=== PATIENT | female | born 1935 | race Caucasian/White ===

== ENCOUNTER 2019-03-29 21:58 | Inpatient (IN) | payer MEDICARE ==
[~2019-03-29] VITALS: Ht 160 cm; Wt 46.5 kg
--- NOTE | 2019-03-29 22:20 | NUR ---
PT BROUGHT IN BY [facility]. PT PLACED IN HOSPITAL GOWN. CARDIAC AND VITALS MONITORS PLACED ON PT. PT DENIES CHEST PAIN AT THIS TIME. EKG TO BE DONE.
[2019-03-29] MEDS ORDERED: SODIUM CHLORIDE FLUSH 10ML SYR IVF ONE (22:30)
[2019-03-29] MEDS ORDERED: MORPHINE SULFATE 4 MG/ML, 1ML IVPush PRN (22:30)
[2019-03-29 22:34] LABS: BASOPHILS % (AUTO) 0 % (0-1); EOSINOPHILS # (AUTO) 0.02 x10^3/uL (0-0.4); EOSINOPHILS % (AUTO) 0 % (1-7); LYMPHOCYTES # (AUTO) 0.74 x10^3/uL (1-3.4); LYMPHOCYTES % (AUTO) 9 % (22-44); MD NO; MEAN CORPUSCULAR HEMOGLOBIN 31.5 pg (27.0-34.8); MEAN CORPUSCULAR HGB CONC 34.4 g/dL (32.4-35.8); MEAN CORPUSCULAR VOLUME 91.5 fL (80-100); MEAN PLATELET VOLUME 6.9 fL (7.4-10.4); MONOCYTES # (AUTO) 0.23 x10^3/uL (0.2-0.8); MONOCYTES % (AUTO) 3 % (2-9); NEUTROPHILS # (AUTO) 7.21 x10^3/uL (1.8-6.8); NEUTROPHILS % (AUTO) 88 % (42-75); PLATELET COUNT 260 x10^3/uL (130-400); RED BLOOD COUNT 3.94 x10^6/uL (3.82-5.3); RED CELL DISTRIBUTION WIDTH 13.6 % (9.6-15.2)
[2019-03-29 22:47] LABS: ALANINE AMINOTRANSFERASE 21 U/L (12-78); ANION GAP 6 mmol/L (5-15); CALCIUM 7.9 mg/dL (8.5-10.1); CHLORIDE 113 mmol/L (98-107); CREATININE 0.79 mg/dL (0.55-1.02)
[2019-03-29 22:51] LABS: ALKALINE PHOSPHATASE 57 U/L (45-117); BILIRUBIN,TOTAL 0.3 mg/dL (0.2-1.0); TOTAL PROTEIN 5.6 g/dL (6.4-8.2)
[2019-03-29] MEDS ORDERED: ATOR40TA78 PO (22:57)
[2019-03-29] MEDS ORDERED: ASPI-496 PO (22:57)
[2019-03-29] MEDS ORDERED: MULT-658 PO (22:57)
[2019-03-29] MEDS ORDERED: ENAL10TA PO (22:57)
[2019-03-29] MEDS ORDERED: DOCU-131 PO (22:57)
[2019-03-29] MEDS ORDERED: FELO10TA PO (22:57)
[2019-03-29] MEDS ORDERED: AMLODIPINE PO (22:57)
[2019-03-29] MEDS ORDERED: LEVO25TA4 PO (22:57)
[2019-03-29] MEDS ORDERED: ASCO500T12 PO (22:57)
[2019-03-29] MEDS ORDERED: HEPARIN 25,000 UNITS/500ML PMX 500 ML IV PRN ×2 (23:00→23:45)
[2019-03-29] MEDS ORDERED: HEPARIN 5,000 UNITS/ML, 1ML IV ONE (23:00)
[2019-03-29] MEDS ORDERED: HEPARIN 5,000 UNITS/ML, 1ML IV PRN ×2 (23:00→23:45)
[2019-03-29 23:09] LABS: INTERNATIONAL NORMALIZED RATIO 1.07 (0.93-1.1); PROTHROMBIN TIME 11.2 Seconds (9.6-11.5)
[2019-03-29] MEDS: ENALAPRIL 10 MG TABLET PO SCH (23:30)
--- NOTE | 2019-03-29 23:31 | NUR ---
+report to Cally guerrero for toom 529
[2019-03-29] MEDS ORDERED: HEPARIN 25,000 UNITS/500ML PMX 500 ML ONE (23:36)
--- NOTE | 2019-03-29 23:40 | NUR ---
CAROL BEASLEY - [phone] KANDIS JONES - [phone]
[2019-03-29] MEDS ORDERED: SODIUM CHLORIDE 0.9% 1,000 ML IV SCH (23:48)
[2019-03-30] MEDS ORDERED: hydrALAzine 20 MG/ML, 1ML IVPush PRN
[2019-03-30] MEDS ORDERED: BISACODYL 10 MG SUPP PR PRN
[2019-03-30] MEDS ORDERED: ONDANSETRON 2MG/ML, 2ML IVPush PRN
[2019-03-30] MEDS ORDERED: POLYETHYLENE GLYCOL 17 GM PACKET PO PRN
[2019-03-30] MEDS ORDERED: PROMETHAZINE 25 MG/ML, 1ML IM PRN
[2019-03-30] MEDS ORDERED: DOCUSATE 100 MG CAPSULE PO PRN
[2019-03-30] MEDS ORDERED: ACETAMINOPHEN 325 MG TABLET PO PRN
[2019-03-30] MEDS ORDERED: OXYcodone IR 5MG TABLET PO PRN
[2019-03-30] MEDS ORDERED: morphine SULFATE 10 MG/ML, 1ML IVPush PRN
[2019-03-30] MEDS ORDERED: NITROGLYCERIN 0.4 MG BOTTLE (25 TABS) SL PRN
[2019-03-30] MEDS ORDERED: ONDANSETRON ODT 4 MG PO PRN
[2019-03-30 00:20] LABS: HEMOGLOBIN A1C 5.6 % (4.2-6.3)
[2019-03-30 00:22] LABS: FREE T4 (FREE THYROXINE) 1.03 ng/dL (0.76-1.46); THYROID STIMULATING HORMONE 3.45 mIU/L (0.358-3.740)
[2019-03-30] MEDS: AMLODIPINE 10 MG TAB PO SCH ×2 (00:39→20:18)
[2019-03-30] MEDS: DOCUSATE 100 MG CAPSULE PO SCH ×2 (00:39→20:18)
[2019-03-30] MEDS: ATORVASTATIN 40 MG TABLET PO SCH ×2 (00:39→20:17)
[2019-03-30] MEDS ORDERED: HEPARIN 25,000 UNITS/500ML PMX 500 ML IV PRN (01:00)
[2019-03-30] MEDS ORDERED: HEPARIN 5,000 UNITS/ML, 1ML IV PRN (01:00)
[2019-03-30 01:22] VITALS: BP 125/69
[2019-03-30 01:48] VITALS: BP 111/61
[2019-03-30 02:26] LABS: MICROSCOPIC AUTO
[2019-03-30 02:29] LABS: CULTURE INDICATED? YES
[2019-03-30 04:42] LABS: BASOPHILS # (AUTO) 0.03 x10^3/uL (0-0.1); BASOPHILS % (AUTO) 1 % (0-1); EOSINOPHILS # (AUTO) 0.03 x10^3/uL (0-0.4); EOSINOPHILS % (AUTO) 0 % (1-7); LYMPHOCYTES # (AUTO) 1.03 x10^3/uL (1-3.4); LYMPHOCYTES % (AUTO) 15 % (22-44); MD NO; MEAN CORPUSCULAR HEMOGLOBIN 31.4 pg (27.0-34.8); MEAN CORPUSCULAR HGB CONC 34.1 g/dL (32.4-35.8); MEAN CORPUSCULAR VOLUME 92.1 fL (80-100); MEAN PLATELET VOLUME 6.8 fL (7.4-10.4); MONOCYTES # (AUTO) 0.37 x10^3/uL (0.2-0.8); MONOCYTES % (AUTO) 5 % (2-9); NEUTROPHILS # (AUTO) 5.63 x10^3/uL (1.8-6.8); NEUTROPHILS % (AUTO) 79 % (42-75); PLATELET COUNT 242 x10^3/uL (130-400); RED BLOOD COUNT 3.64 x10^6/uL (3.82-5.3); RED CELL DISTRIBUTION WIDTH 13.8 % (9.6-15.2)
[2019-03-30 05:14] LABS: CHLORIDE 112 mmol/L (98-107)
[2019-03-30 05:22] LABS: ALANINE AMINOTRANSFERASE 32 U/L (12-78); ALBUMIN 2.8 g/dL (3.4-5.0); ALKALINE PHOSPHATASE 53 U/L (45-117); ANION GAP 8 mmol/L (5-15); BILIRUBIN,TOTAL 0.4 mg/dL (0.2-1.0); CHOLESTEROL, TOTAL 131 mg/dL (140-239); CREATININE 0.63 mg/dL (0.55-1.02); HDL CHOL % 50 % (28-40); HDL CHOLESTEROL (DIRECT) 65 mg/dL (40-60); LDL CHOLESTEROL,CALCULATED 46 mg/dL (54-169); LDL/HDL RATIO 0.7 (0.5-3.0); TOTAL PROTEIN 5.3 g/dL (6.4-8.2); TRIGLYCERIDES 101 mg/dL (50-200); VLDL CHOLESTEROL 20 mg/dL (0-25)
[2019-03-30] MEDS ORDERED: METOPROLOL TARTRATE 25 MG TABLET PO SCH (06:00)
[2019-03-30] MEDS: METOPROLOL TARTRATE 25 MG TABLET PO SCH ×3 (06:00→17:39)
[2019-03-30] MEDS: ASPIRIN 325 MG TABLET PO SCH (06:27)
[2019-03-30] MEDS ORDERED: ASPIRIN 81 MG TABLET EC PO SCH (09:00)
[2019-03-30 09:28] VITALS: BP 127/71
[2019-03-30] MEDS ORDERED: MIDAZOLAM 1 MG/ML, 2ML ONE (10:58)
[2019-03-30] MEDS ORDERED: FENTANYL PF 100 MCG/2ML ONE (10:58)
[2019-03-30] MEDS ORDERED: LIDOCAINE 1%, 20ML ONE (10:58)
[2019-03-30] MEDS ORDERED: BIVALIRUDIN 250 MG ONE (11:48)
[2019-03-30] MEDS ORDERED: CLOPIDOGREL 300 MG TABLET ONE (11:55)
[2019-03-30] MEDS ORDERED: BIVALIRUDIN 250 MG in SODIUM CHLORIDE 0.9% 50 ML IV SCH (12:15)
[2019-03-30] MEDS: ENALAPRIL 10 MG TABLET PO SCH ×2 (13:00→20:17)
[2019-03-30 14:00] VITALS: BP 133/70
[2019-03-30] MEDS ORDERED: ENALAPRIL 5MG TABLET ONE (14:01)
[2019-03-30] MEDS: LEVOTHYROXINE 25 MCG TABLET PO SCH (14:05)
[2019-03-30] MEDS: MULTIVITAMIN 1 TABLET PO SCH (14:05)
[2019-03-30] MEDS: ASCORBIC ACID 500 MG TABLET PO SCH (14:05)
[2019-03-30] MEDS ORDERED: FUROSEMIDE 20 MG/2 ML IV ONE (17:00)
[2019-03-30] MEDS ORDERED: POTASSIUM CHLORIDE 8 MEQ TABLET.ER PO SCH (17:00)
[2019-03-30 19:14] VITALS: BP 131/65
[2019-03-31 00:53] VITALS: BP 122/70
[2019-03-31 04:56] VITALS: BP 108/57
[2019-03-31] MEDS: METOPROLOL TARTRATE 25 MG TABLET PO SCH (04:57)
[2019-03-31] MEDS: ASPIRIN 325 MG TABLET PO SCH (04:57)
[2019-03-31 05:33] LABS: BASOPHILS # (AUTO) 0.02 x10^3/uL (0-0.1); BASOPHILS % (AUTO) 0 % (0-1); EOSINOPHILS # (AUTO) 0.03 x10^3/uL (0-0.4); EOSINOPHILS % (AUTO) 0 % (1-7); LYMPHOCYTES # (AUTO) 0.96 x10^3/uL (1-3.4); LYMPHOCYTES % (AUTO) 14 % (22-44); MD NO; MEAN CORPUSCULAR HEMOGLOBIN 31.8 pg (27.0-34.8); MEAN CORPUSCULAR HGB CONC 33.7 g/dL (32.4-35.8); MEAN CORPUSCULAR VOLUME 94.5 fL (80-100); MEAN PLATELET VOLUME 6.9 fL (7.4-10.4); MONOCYTES # (AUTO) 0.43 x10^3/uL (0.2-0.8); MONOCYTES % (AUTO) 6 % (2-9); NEUTROPHILS # (AUTO) 5.47 x10^3/uL (1.8-6.8); NEUTROPHILS % (AUTO) 79 % (42-75); PLATELET COUNT 233 x10^3/uL (130-400); RED BLOOD COUNT 3.73 x10^6/uL (3.82-5.3); RED CELL DISTRIBUTION WIDTH 13.6 % (9.6-15.2)
[2019-03-31 05:38] LABS: ANION GAP 6 mmol/L (5-15); CALCIUM 8.4 mg/dL (8.5-10.1); CHLORIDE 111 mmol/L (98-107)
[2019-03-31 05:39] LABS: CREATININE 0.71 mg/dL (0.55-1.02)
[2019-03-31 07:37] VITALS: BP 127/67
[2019-03-31] MEDS ORDERED: CLOPIDOGREL 75 MG TABLET PO SCH (09:00)
[2019-03-31] MEDS: ASCORBIC ACID 500 MG TABLET PO SCH (09:21)
[2019-03-31] MEDS: MULTIVITAMIN 1 TABLET PO SCH (09:21)
[2019-03-31] MEDS: LEVOTHYROXINE 25 MCG TABLET PO SCH (09:21)
[2019-03-31] MEDS: ENALAPRIL 10 MG TABLET PO SCH (09:22)
[2019-03-31] MEDS ORDERED: ASPI325T17 PO (12:43)
[2019-03-31] MEDS ORDERED: NITR0.4T SL (12:43)
[2019-03-31] MEDS ORDERED: METO25TA35 PO (12:43)
[2019-03-31] MEDS ORDERED: CLOP75TA PO (12:43)
[2019-03-31] MEDS ORDERED: DOXY100T10 PO (12:53)
[2019-03-31] MEDS ORDERED: CEFD300C37 PO (12:53)
[2019-03-31] MEDS ORDERED: DOXYCYCLINE 100 MG in DEXTROSE 5% 250 ML IV SCH (13:00)
[2019-03-31] MEDS ORDERED: CEFTRIAXONE PMX 2GM/50ML 50 ML IV SCH (13:00)
[2019-03-31 13:15] VITALS: BP 132/53
[2019-03-31] MEDS ORDERED: METOPROLOL TARTRATE 25 MG TABLET PO SCH (18:00)
== END 2019-03-31 14:15 | disposition home or self-care (01) | DRG 246 ==
LOC: ED 23:12 → EDIP 23:30 → 5SO 03-30 00:01 → DCLOUNGE 03-31 13:50
PROVIDERS: ADMIT Internal Medicine; ATTEND Internal Medicine
PROC: 027034Z Dilation of Coronary Artery, One Artery with Drug-eluting Intraluminal Device, Percutaneous Approach (ICD-10-PCS; principal; 2019-03-30)
PROC: 4A023N7 Measurement of Cardiac Sampling and Pressure, Left Heart, Percutaneous Approach (ICD-10-PCS; 2019-03-30)
PROC: B2111ZZ Fluoroscopy of Multiple Coronary Arteries using Low Osmolar Contrast (ICD-10-PCS; 2019-03-30)
PROC: B2151ZZ Fluoroscopy of Left Heart using Low Osmolar Contrast (ICD-10-PCS; 2019-03-30)
DX: I21.4 Non-ST elevation (NSTEMI) myocardial infarction (principal); J18.9 Pneumonia, unspecified organism; I48.91 Unspecified atrial fibrillation; I25.10 Atherosclerotic heart disease of native coronary artery without angina pectoris; I44.7 Left bundle-branch block, unspecified; I34.1 Nonrheumatic mitral (valve) prolapse; I10 Essential (primary) hypertension; E78.5 Hyperlipidemia, unspecified; E03.9 Hypothyroidism, unspecified; I07.1 Rheumatic tricuspid insufficiency; I70.0 Atherosclerosis of aorta; Z90.710 Acquired absence of both cervix and uterus; Z83.3 Family history of diabetes mellitus; Z79.82 Long term (current) use of aspirin; Z87.891 Personal history of nicotine dependence; Z90.49 Acquired absence of other specified parts of digestive tract; Z90.89 Acquired absence of other organs; Z88.1 Allergy status to other antibiotic agents; Z88.8 Allergy status to other drugs, medicaments and biological substances; Z82.49 Family history of ischemic heart disease and other diseases of the circulatory system
CPT/HCPCS: 36415; 71045; 80048; 80053; 80061; 81001; 83036; 83735; 83880; 84439; 84443; 84484; 85025; 85520; 85610; 85730; 87086; 93005; 93306; 93308; 93458; 99156; 99157; 99285; C1760; C1769; C1894; C9600; G0378; J0583; J1644; J2250; J3010; C1874; C1887; J1940; J7030; Q9967